=== PATIENT | male | born 1985 | race Asian ===

== ENCOUNTER 2018-01-27 03:41 | Emergency (ER) | payer SELFPAY ==
[~2018-01-27] VITALS: Ht 180.3 cm; Wt 94.0 kg
[2018-01-27 06:45] VITALS: BP 126/76
== END 2018-01-27 07:29 | disposition home or self-care (01) ==
LOC: ER 07:26
DX: H66.92 Otitis media, unspecified, left ear (principal); H61.23 Impacted cerumen, bilateral
CPT/HCPCS: 69210; 99284